=== PATIENT | male | born 2005 | race Two or more races ===

== ENCOUNTER 2024-11-19 22:42 | Inpatient (IN) | payer MEDICAID, SELFPAY ==
[2024-11-19 22:45] VITALS: PULSE 170; O2SAT 96; BMI 36.6
[2024-11-19 22:53] VITALS: BP 159/85; PULSE 153; RESP 19; TEMP 38.3; O2SAT 95
[2024-11-19] MEDS: SODIUM CHLORIDE 0.9% 1000 ML 1,000 ML 999 ML IV (23:02)
--- NOTE | 2024-11-19 23:07 | EDNOTE_ITS ---
ED Arrhythmia Palp. RME/HPI General Chief Complaint: Arrhythmia/Palpitations Stated Complaint: CHEST PAIN Time Seen by Provider: 11/19/24 22:55 Arrival date/time: 11/19/24 22:42 RME / HPI RME / HPI narrative: DR. GRIFFITHS MAIN ED EVALUATION: 19 y/o male with Hx of HTN presents to ED BIBA from home c/o 12/30 chest pain and palpitations s/p ingesting half a THC 100 mg beverage x just NANNY/HOUSEHOLD MANAGER. Patient states this is his first time using THC. Denies any other drug use. Denies heavy alcohol consumption. Per EMS, patient had heart rate in the 170's in SVT. Patient's was put on O2 15L, Versed 6 mg, and given 3 shocks (100 j, 200 j, and 360 j) without conversion, en route. No other concerns or complaintss expressed at this time. Related Data Home Medications ?Medication ?Instructions ?Recorded ?Confirmed No Known Home Medications 10/04/2109/21 Allergies Allergy/AdvReac Type Severity Reaction Status Date / Time NKA* Allergy Uncoded 10/16/23 15:37 Review of Systems Review of Systems Systems Reviewed: All systems reviewed, normal except as documented Past Medical History Past Medical History CARDIAC: Positive Hypertension ED Exam Narrative Physical exam: Generally patient is mildly somnolent but responsive heart tachycardic rate regular rhythm, lungs clear to auscultation bilaterally abdomen is soft nondistended nontender neurologic exam [place] Coma Scale is 15 without focal motor deficits skin is cool pale and dry extremities show no edema Course Quality Measures none Orders Category Date Time Status EKG (ED ONLY) *Do not use* NOW Care 11/19/24 22:56 Active EKG (ED Only) Stat Exams 11/19/24 22:56 Ordered Alcohol, Blood Medical Stat Lab 11/19/24 22:56 Ordered BNP [B-Type Natriuretic Peptide] Stat Lab 11/19/24 22:56 Ordered CBC Stat Lab 11/19/24 22:56 Ordered CMP [Comprehensive Metabolic Panel] Stat Lab 11/19/24 22:56 Ordered Drug Screen,Urine Stat Lab 11/19/24 22:56 Ordered Troponin I Stat Lab 11/19/24 22:56 Ordered Sodium Chloride 0.9% 1000 ml [Ns] 1,000 ml Med 11/19/24 22:56 Active IV 999 mls/hr Vital Signs Vital signs: Vital Signs Temperature 100.9 F H 11/19/24 22:53 Pulse Rate 153 H 11/19/24 22:53 Respiratory Rate 19 11/19/24 22:53 Blood Pressure 159/85 H 11/19/24 22:53 Pulse Oximetry (%) 95 11/19/24 22:53 Oxygen Delivery Method Room Air 11/19/24 22:53 Arrhythmia/Palpitations MDM Narrative MDM Narrative:: Scribe Attestation: IAlicia, am scribing for and in the presence of Dr. Griffiths. Provider Notation: Although this document has been carefully reviewed, there may still be some phonetic and other typographical errors. These errors are purely grammatical due to imperfections in the software program and should not be construed in any way to compromise the substance of the patient's medical care during this visit. Differential diagnosis: Drug ingestion, alcohol ingestion, electrolyte abnormality Patient was cardioverted x 3 after being given Versed 6 mg IV by paramedics. Heart rate only decreased to approximately 150. Patient arrived with an EKG done here in the emergency room showing sinus tachycardia at 153 without ischemic change. Urinary tox screen is ordered and the patient is yet to give a urine sample for the tox screen. Alcohol level is not elevated. Potassium is low at 2.6. Magnesium level is pending. Patient received potassium chloride 60 mill equivalents p.o. as well as potassium chloride 10 mill equivalents IV every hour x 4. Patient was hydrated with 1 L of IV normal saline. After approximately 2 hours here in the emergency room heart rate is down to 140 and is a sinus tachycardia. I discussed this case with the hospitalist and the patient will require admission to the hospital for further treatment and evaluation for his drug ingestion tachycardia and severe hypokalemia. Patient data External records reviewed:: [facility] previous records (No prior ED records available for review.) and EMS form Clinical information provided by:: patient and EMS Social determinants that could affect healthcare access:: substance use (THC) Patient has the following chronic illnesses:: HTN How is presenting disease/condition affected by chronic disease/condition?: exacerbated by Evaluation data The following diagnostics were reviewed and interpreted by me:: lab results and EKG tracing(s) Lab and/or radiology exams considered but not ordered:: None Interpretation Summary: See MDM above. Medications / Prescriptions Medications or Prescriptions considered but not ordered:: None Medication administrations:: Medication Administration History Sodium Chloride (Ns) 1,000 mls @ 999 mls/hr IV .Q1H1M ONE Stop: 11/19/24 23:56 Last Admin: 11/19/24 23:02 Dose: 999 mls/hr Documented By: RC Consultations Consultation(s) initiated? (list below): Yes Consultation #1 (Physician, Specialty, Details): Hospitalist made aware of the patient?s HPI, PMHx, lab and/or radiology results. Treatment plan was discussed. Will admit for further evaluation and management. Accepts patient for admission. Time: 00:32 Diagnosis Differential diagnosis arrhythmia/palpitations: palpitations, anxiety, sinus tachycardia, artial fibrillation, artial flutter, ventricular premature beats, supraventricular tachycardia, ventricular tachycardia and WPW Most likely diagnosis given after review of the tests above:: none Admission Indicated Admission indicated?: indicated Explain why admission is indicated or not indicated:: Hypokalemia Admission Request Was there a request for admission?: Yes Admission Attestation Admission request attestation: Discussed case with [] from Hospitalist service regarding admission. Discussed patients ED course, exam findings, labs, and radiology results. The Hospitalist [agrees,declines] to accept the patient for admission. Disposition Plan Disposition Plan: Admit Critical Care Time Critical Care Time Critical Care Time: Yes Total Critical Care Time (min.): 35 Attestation: Excluding other billable procedures Discharge Plan Plan Patient Disposition: Admit Acute Care w/in Hospital Prescriptions/Referrals Prescriptions/Med Rec: No Action No Known Home Medications Referrals: No Primary/Family,Physician [Primary Care Provider] - In 1 week Problem List Clinical Impression: Drug ingestion, Sinus tachycardia, Hypokalemia Patient/Caregiver Discharge Instructions Print Language: Belarusian Stand Alone Forms: [employer] Award Info., Patient Portal Info Letter
[2024-11-19 23:20] LABS: Basophils # (Auto) 0.1 Thou/mm3 (0.0-0.2); Basophils % (Auto) 1 % (0-2.5); Eosinophils # (Auto) 0.4 Thou/mm3 (0.0-0.5); Eosinophils % (Auto) 3 % (0-10); Hematocrit 39.5 % (41.0-53.0); Hemoglobin 13.6 g/dL (13.5-16.0); Immature Granulocytes Auto 0.07 Thou/mm3 (0.00-0.00); Lymphocytes # (Auto) 7.1 Thou/mm3 (1.0-4.8); Lymphocytes % (Auto) 46 % (10-50); Mean Corpuscular HGB Conc 34.4 g/dl (31.0-37.0); Mean Corpuscular Hemoglobin 29.4 pg (25.0-35.0); Mean Corpuscular Volume 85 fL (80-100); Monocytes # (Auto) 1.4 Thou/mm3 (0.0-0.8); Monocytes % (Auto) 9 % (0-12); Neutrophils # (Auto) 6.5 Thou/mm3 (1.8-7.7); Neutrophils % (Auto) 42 % (37-80); Nucleated Red Blood Cell # 0.00 Thou/mm3 (0.00-0.00); Nucleated Red Blood Cell % 0 /100 WBC (0); Platelet Count 292 Thou/mm3 (140-440); RDW Standard Deviation 38.0 fL (35.1-43.9); Red Blood Count 4.63 Miln/mm3 (4.50-5.90); White Blood Count 15.5 Thou/mm3 (4.5-11.0)
[2024-11-19 23:27] LABS: B-Type Natriuretic Peptide < 20 pg/mL (0-100)
[2024-11-19 23:33] LABS: Alanine Aminotransferase 55 U/L (10-49); Albumin, Serum 3.7 gm/dL (3.5-5.0); Albumin/Globulin Ratio 1.9 (1.2-2.2); Alcohol, Blood Medical < 3.0 mg/dL (0-10.0); Alkaline Phosphatase 81 U/L (46-116); Anion Gap 14 (7-16); Aspartate Amino Transferase 30 U/L (0-34); BUN/Creatinine Ratio 9 Ratio (12-20); Bilirubin,Total 0.2 mg/dL (0.3-1.2); Blood Urea Nitrogen 9 mg/dL (9-23); Calcium 7.8 mg/dL (8.3-10.6); Calcium (Corrected) 8.0 mg/dL (8.5-10.1); Carbon Dioxide 19.1 mMol/L (20.0-31.0); Chloride 113 mMol/L (98-107); Creatinine (Component) 1.0 mg/dL (0.6-1.3); Estimated Creatinine Clearance 150.1 mL/min (>60); Globulin 2.0 gm/dL (2.3-3.5); Glucose 132 mg/dL (74-106); Osmolality,Calculated 291 (275-295); Sodium 146 mMol/L (136-145); Total Protein 5.7 gm/dL (5.7-8.2); Troponin I < 0.002 ng/mL (0.0-0.045); eGFR > 60 See Note
[2024-11-19 23:36] LABS: Potassium 2.6 mMol/L (3.4-5.1)
[2024-11-20] VITALS (7 sets, daily range): BP systolic 125–153; BP diastolic 66–92; PULSE 70–140; RESP 15–20; TEMP 36.4–37.3; O2SAT 96–98; BMI 38.0
[2024-11-20 00:41] LABS: Magnesium 1.5 mg/dL (1.6-2.6)
[2024-11-20] MEDS: POTASSIUM CHL 10 mEq IVPB 10 MEQ/100 ML BAG 100 MEQ IV ×4 (00:42→03:51)
[2024-11-20 00:47] LABS: Path Review Blood Smear Sent to Pathologist
--- NOTE | 2024-11-20 01:27 | PD.RESHP ---
Documentation for date of: 11/20/24 HPI History of Present Illness Chief complaint: Chest pain, dizziness History of present illness: 19 y/o M without significant PMHx presents with chief complaint of 10/10 chest pain and dizziness. Symptoms began shortly after consuming half a can of High-Tea which contains 100 mg THC. Pain 10/10, substernal, nonpleuritic, nonreproducible. Patient describes dizziness as feeling lightheaded, like he was about to faint, room spinning. EMS was called, who found patient to have SVT with heart rate as high as 170s. Patient was given Versed and cardioverted 3 times in the field without success. Patient reports in the past having had heart rate in 130s on visits to PCP, has never received treatment. Family history of unspecified heart disease in mother. Patient denies fevers, chills, nausea, vomiting, shortness of breath, abdominal pain. ED COURSE: Labs significant for: WBC 15.5, potassium 2.6, magnesium 1.5, corrected calcium 8.0, troponin negative. Imaging significant for: EKG showed focal atrial tachycardia. Patient received 1 L bolus normal saline, 60 mEq p.o. potassium, 40 mEq IV potassium in ED. PMH: None PSH: None SH: Patient denies tobacco or vape use. Patient reports having tried THC once in the past. Patient denies any other illicit drug use. Patient reports rare alcohol use. FH: Unspecified heart disease in mother Allergies:?None Medications: None Review of Systems Review of Systems Systems Reviewed: All systems reviewed, normal except as documented Past Medical History Past Medical History Comments PMH COMMENT: PMH: None PSH: None SH: Patient denies tobacco or vape use. Patient reports having tried THC once in the past. Patient denies any other illicit drug use. Patient reports rare alcohol use. FH: Unspecified heart disease in mother Allergies:?None Medications: None Exam Vital Signs Temp Pulse Resp BP Pulse Ox O2 Del Method 98.7 F 140 H 18 148/92 H 98 Room Air 11/20/24 00:34 11/20/24 00:34 11/20/24 00:34 11/20/24 00:34 11/20/24 00:34 11/20/24 00:34 Narrative Exam PE: Gen: Well-developed and well-nourished. HEENT: NCAT, PERRLA, EOMI, MMM, anicteric conjunctivae. CVS: normal S1 and S2. No M/R/G. Tachycardic. Peripheral pulses intact. Resp: CTA B/L. No rhonchi, rales, crackles or wheezing. Abd: soft, non-tender, non-distended. BS+ in all 4 quadrants. MSK: Good ROM in BUE & BLE. No edema or rash. Acanthosis nigricans neck, axilla. Neuro: CN II-XII grossly intact. Strength 5/5 in BUE & BLE. Alert and oriented x3. Psych: appropriate mood and affect. Results: Labs 11/19/24 23:00 11/19/24 23:00 Labs: Short CBC 11/19/24 Range/Units 23:00 WBC 15.5 H (4.5-11.0) Thou/mm3 Hgb 13.6 (13.5-16.0) g/dL Hct 39.5 L (41.0-53.0) % Plt Count 292 (140-440) Thou/mm3 BMP 11/19/24 23:00 Sodium 146 H Potassium 2.6 L* Chloride 113 H Carbon Dioxide 19.1 L BUN 9 Creatinine 1.0 Glucose 132 H Calcium 7.8 L Cardiac Enzymes 11/19/24 Range/Units 23:00 Troponin I < 0.002 (0.0-0.045) ng/mL Liver Function 11/19/24 Range/Units 23:00 Total Bilirubin 0.2 L (0.3-1.2) mg/dL AST 30 (0-34) U/L ALT 55 H (10-49) U/L Alkaline Phosphatase 81 (46-116) U/L Albumin 3.7 (3.5-5.0) gm/dL Quality Measures Quality Measures VTE prophylaxis Medications Home Medications and Allergies Home Medications ?Medication ?Instructions ?Recorded ?Confirmed ?Type No Known Home Medications 10/04/21 10/16/23 History Allergies Allergy/AdvReac Type Severity Reaction Status Date / Time NKA* Allergy Uncoded 10/16/23 15:37 Visit Medications Acetaminophen (Acetaminophen 325 Mg Tablet) 650 mg PO Q6H PRN PRN Reason: Fever >100.4 or pain Stop: 12/20/24 01:17 Docusate Sodium (Docusate Sod 100 Mg Capsule) 100 mg PO QDAY PRN; Protocol PRN Reason: CONSTIPATION Stop: 12/20/24 01:17 Enoxaparin Sodium (Enoxaparin Sod Inj 40 Mg/0.4 Ml Syringe) 40 mg SC QDAY JEAN Stop: 12/04/24 08:59 Potassium Chloride (Kcl Ivpb) 10 meq in 100 mls @ 100 mls/hr IV Q1H JEAN Stop: 11/20/24 03:42 Last Admin: 11/20/24 00:42 Dose: 100 mls/hr Magnesium Sulfate (Magnesium Sulfate Ivpb) 4 gm in 50 mls @ 12.5 mls/hr IV X1 ONE Stop: 11/20/24 05:17 Lactated Ringer's (Lactated Ringers) 1,000 mls @ 999 mls/hr IV .Q1H1M ONE Stop: 11/20/24 02:21 Ibuprofen (Ibuprofen Tab 600 Mg Tablet) 600 mg PO Q6H PRN PRN Reason: Pain Scale 1-6 Stop: 12/20/24 01:17 Sennosides (Senna Tablet) 1 tab PO QDAY PRN; Protocol PRN Reason: constipation Stop: 12/20/24 01:17 Discontinued Medications Sodium Chloride (Ns) 1,000 mls @ 999 mls/hr IV .Q1H1M ONE Stop: 11/19/24 23:56 Last Infusion: 11/20/24 00:42 Dose: Infused Potassium Chloride (Potassium Chloride 20 Meq Tabcr) 60 meq PO X1 ONE Stop: 11/19/24 23:43 Last Admin: 11/20/24 00:38 Dose: 60 meq Assessment & Plan Plan 19 y/o M without significant PMHx presents with chief complaint of 10/10 chest pain and dizziness, admitted for SVT. #SVT, hemodynamically stable Patient presented with chief complaint 10/10 chest pain after drinking half a can of high?tea containing 100 mg THC. Patient also complained of dizziness, described a sensation of room spinning, feeling as though he was going to faint. Electric cardioversion attempted 3 times in the field by EMS without success. In the field heart rate was as high as 170s. Potassium 2.6, magnesium 1.5, repleted. Troponin negative. Cardiology consulted. Patient received 1 L bolus normal saline in the ED. Heart rate decreased to 130s, patient's symptoms improved. - Telemonitoring - Cardiology consult, appreciate recommendations - Maintain potassium > 4.0 and magnesium > 2.0 - Echo ordered, follow-up - TSH, lipid panel, A1c ordered, follow-up #Leukocytosis WBC 15.5. Patient afebrile, denies any signs/symptoms of infection. Suspect reactive in setting of SVT. - Continue to monitor DVT prophylaxis: Lovenox GI prophylaxis: None Diet: Cardiac Lines: Peripheral IV Code status: Full Code Plan of care discussed with Dr. Alcantar. Alexandre Pretty MD PGY-2 Attending Provider Attestation/Addendum After examination of the patient and review of the clinical data I feel that this patient needs admission to the hospital for further treatment/evaluation. I have discussed and was present for the essential components of the history, physical examination, diagnosis, and treatment plan with the resident. I agree with the patient's care as documented by the resident and amended herein by me. Ottoniel Alcantar, DO. Although this document has been carefully reviewed, there may still be some phonetic and other typographical errors. These errors are purely grammatical due to imperfections in the software program and should not be construed in any way to compromise the substance of the patient's medical care during this visit. Patient seen and evaluated in the ED in short, 19-year-old male with significant past medical history of morbid obesity, microscopic hematuria, previously has followed with urology and a reported history of tachycardia, the patient does have a past echo on file read by Dr. Herrera however no additional details known, presented to the ED with complaints of 10 out of 10 chest pain, dizziness, lightheadedness which began shortly after consuming a can of high tea which contains THC. Upon arrival of EMS, the patient demonstrating supraventricular tachycardia with a heart rate in the 170s, the patient was given Versed and cardioverted multiple times (3) without successful conversion. In the ED, BP 148/92, heart rate was improved at time of my bedside visit to 136, the patient was on room air, not in any apparent distress, able to communicate with us without issue. Significant labs include a WBC of 15, sodium 146, potassium 2.6, chloride 113, bicarb 19, BUN 9, creatinine 1, calcium 8 and a magnesium of 1.5. Alcohol level was negative. On 06/03/2022 the patient did have an echocardiogram as stated above, read by Dr. Herrera, it demonstrated normal LV size and function with an EF of 65%, trace mitral and trace tricuspid regurgitation was noted. In the ED, the patient's potassium was repleted with 60 mill equivalents p.o. and 40 mill equivalents IV. Patient was also given 1 L of NS. Patient will be admitted to acute telemetry for a supraventricular tachycardia, possibly AVNRT, electrolyte derangements to include hypokalemia and hypomagnesia as well as dehydration. Patient also had a slight leukocytosis with a WBC of 15 which is likely reactive. We will continue repeating the patient's electrolytes, an echo has been ordered, cardiology has been consulted, and we will give an additional LR bolus. If the patient's heart rate remains elevated after electrolyte and fluid replenishment, we may try metoprolol dosing however we will hold off for now. Will continue to monitor closely.
[2024-11-20] MEDS: Magnesium Sulfate 4 GM Ivpb 4 GM/50 ML BAG IV (01:43)
[2024-11-20] MEDS: RINGERS LACTATED 1000 ML 1,000 ML 999 ML IV (02:23)
[2024-11-20 02:57] LABS: Amphetamine/Methamp Scrn,U Negative (Negative); Barbiturate Screen,Urine Negative (Negative); Benzodiazepines Screen,Urine Positive (Negative); Benzoylecgonine Screen, Ur Negative (Negative); Fentanyl Screen,Urine Negative (Negative); Opiate Screen,Urine Negative (Negative); THC Screen,Urine Positive (Negative)
[2024-11-20 03:22] LABS: Anion Gap 11 (7-16); BUN/Creatinine Ratio 9 Ratio (12-20); Blood Urea Nitrogen 9 mg/dL (9-23); Calcium 8.8 mg/dL (8.3-10.6); Carbon Dioxide 19.9 mMol/L (20.0-31.0); Chloride 111 mMol/L (98-107); Creatinine (Component) 1.0 mg/dL (0.6-1.3); Estimated Creatinine Clearance 150.1 mL/min (>60); Glucose 135 mg/dL (74-106); Osmolality,Calculated 283 (275-295); Potassium 4.4 mMol/L (3.4-5.1); Sodium 142 mMol/L (136-145); eGFR > 60 See Note
[2024-11-20 05:47] LABS: Basophils # (Auto) 0.1 Thou/mm3 (0.0-0.2); Basophils % (Auto) 0 % (0-2.5); Eosinophils # (Auto) 0.0 Thou/mm3 (0.0-0.5); Eosinophils % (Auto) 0 % (0-10); Hematocrit 42.4 % (41.0-53.0); Hemoglobin 14.4 g/dL (13.5-16.0); Immature Granulocytes Auto 0.08 Thou/mm3 (0.00-0.00); Lymphocytes # (Auto) 3.5 Thou/mm3 (1.0-4.8); Lymphocytes % (Auto) 20 % (10-50); Mean Corpuscular HGB Conc 34.0 g/dl (31.0-37.0); Mean Corpuscular Hemoglobin 29.4 pg (25.0-35.0); Mean Corpuscular Volume 87 fL (80-100); Monocytes # (Auto) 0.9 Thou/mm3 (0.0-0.8); Monocytes % (Auto) 5 % (0-12); Neutrophils # (Auto) 12.7 Thou/mm3 (1.8-7.7); Neutrophils % (Auto) 74 % (37-80); Nucleated Red Blood Cell # 0.00 Thou/mm3 (0.00-0.00); Nucleated Red Blood Cell % 0 /100 WBC (0); Platelet Count 292 Thou/mm3 (140-440); RDW Standard Deviation 38.9 fL (35.1-43.9); Red Blood Count 4.89 Miln/mm3 (4.50-5.90); White Blood Count 17.2 Thou/mm3 (4.5-11.0)
[2024-11-20 06:18] LABS: Glucose Estimated Average 111 mg/dL (80-131); Hemoglobin A1C 5.5 % Hgb (4.8-6.0)
[2024-11-20 06:46] LABS: Alanine Aminotransferase 63 U/L (10-49); Albumin, Serum 4.1 gm/dL (3.5-5.0); Albumin/Globulin Ratio 1.9 (1.2-2.2); Alkaline Phosphatase 107 U/L (46-116); Anion Gap 15 (7-16); Aspartate Amino Transferase 33 U/L (0-34); BUN/Creatinine Ratio 7 Ratio (12-20); Bilirubin,Total 0.2 mg/dL (0.3-1.2); Blood Urea Nitrogen 7 mg/dL (9-23); Calcium 9.1 mg/dL (8.3-10.6); Calcium (Corrected) 9.1 mg/dL (8.5-10.1); Carbon Dioxide 18.5 mMol/L (20.0-31.0); Cardiac Risk Estimate 3.6 RATIO (4.0-6.7); Chloride 110 mMol/L (98-107); Cholesterol 154 mg/dL (132-200); Creatinine (Component) 1.0 mg/dL (0.6-1.3); Estimated Creatinine Clearance 153.2 mL/min (>60); Globulin 2.2 gm/dL (2.3-3.5); Glucose 116 mg/dL (74-106); HDL Cholesterol 43 mg/dL (40-60); LDL Cholesterol,Calculated 84 mg/dL (0-130); Magnesium 2.4 mg/dL (1.6-2.6); Osmolality,Calculated 283 (275-295); Potassium 4.2 mMol/L (3.4-5.1); Sodium 143 mMol/L (136-145); Thyroid Stimulating Hormone 0.56 uIU/mL (0.55-4.78); Total Protein 6.3 gm/dL (5.7-8.2); Triglycerides 134 mg/dL (30-150); eGFR > 60 See Note
--- NOTE | 2024-11-20 08:54 | PC.SS ---
STRETCH MACHINE OPERATOR conducted bedside contact with the patient conduct initial assessment and to discuss discharge planning.? Patient confirmed demographic information.? Patient resides at home with parents. ?Patient does not utilize any form of DME to assist with ambulation.? Patient does not utilize home oxygen.? Patient describes the ability to complete ADL?s independently.? Patient identified father, Virgilio Nielsen ; as surrogate medical decision maker.? Patient utilizes [facility] for PCP services.? Patient does not participate with dialysis.? Patient does not possess any specialty providers.? Patient utilizes [facility] for medication services.? Plan is for the patient to return home at the time of discharge.? Family will provide transportation on behalf of the patient. ?No further discharge needs identified by the patient.? No further intervention required at this time, social service liaison will be available to address any further concerns.? Next of Kin: Virgilio De Diosnandez D/C Plan: Home
[2024-11-20 08:56] LABS: Phosphorous 3.2 mg/dL (2.4-5.1)
[2024-11-20] MEDS: ENOXAPARIN SOD INJ 40 MG/0.4 ML SYRINGE SC (09:10)
[2024-11-20 11:13] LABS: Free T4 (Free Thyroxine) 1.13 ng/dL (0.89-1.76); Troponin I < 0.020 ng/mL (0.0-0.045)
--- NOTE | 2024-11-20 11:57 | ESCONSULT_ITS ---
HPI Data of Consult Requesting Physician: Shaji Alcantar DO Primary Care Provider: Physician No Primary/Family Consult Narrative History of present illness: This is a 19 y/o M without significant PMHx presents with chief complaint of 10/10 chest pain and dizziness. pt consumed THC in the form of High-Tea pt developed chest pain and EMS saw the pt in SVT ; shocked x3 in ER pt was in sinus tachycardia HR 140 troponin negative echo - 2 years ago unremarkable cc:: cc: Shaji Alcantar DO Meds Home Medications and Allergies Home Medications ?Medication ?Instructions ?Recorded ?Confirmed ?Type No Known Home Medications 10/04/2110/23 History Allergies Allergy/AdvReac Type Severity Reaction Status Date / Time NKA* Allergy Uncoded 10/16/23 15:37 Exam Vital Signs Temp Pulse Resp BP Pulse Ox O2 Del Method 98.3 F 101 H 20 136/68 H 97 Room Air 11/20/24 08:00 11/20/24 08:00 11/20/24 08:00 11/20/24 08:00 11/20/24 08:00 11/20/24 08:00 Routine HEENT Exam Head: Present normocephalic and atraumatic Eye: Present EOMI and PERRL ENT: Present mucous membranes moist Routine Neck Exam Neck: Present supple and trachea midline Routine Respiratory Exam Respiratory: Present chest non-tender, lungs clear, normal breath sounds and no resp distress Routine Cardiovascular Exam Cardiovascular: Present RRR Routine Abdominal Exam Abdominal: Present soft and normoactive bowel sounds Routine Extremities Exam Extremities: Present full ROM Routine Skin Exam Skin: Present intact, dry and warm Routine Neurological Exam Neurological: Present alert, oriented X3 and CN II-XII intact Routine Psychiatric Exam Psychiatric: Present normal affect and normal thought process Results Labs 11/20/24 04:40 11/20/24 04:40 Labs: Short CBC 11/19/24 11/20/24 Range/Units 23:00 04:40 WBC 15.5 H 17.2 H (4.5-11.0) Thou/mm3 Hgb 13.6 14.4 (13.5-16.0) g/dL Hct 39.5 L 42.4 (41.0-53.0) % Plt Count 292 292 (140-440) Thou/mm3 BMP 11/19/24 11/20/24 11/20/24 23:00 02:50 04:40 Sodium 146 H 142 143 Potassium 2.6 L* 4.4 D 4.2 Chloride 113 H 111 H 110 H Carbon Dioxide 19.1 L 19.9 L 18.5 L BUN 9 9 7 L Creatinine 1.0 1.0 1.0 Glucose 132 H 135 H 116 H Calcium 7.8 L 8.8 9.1 Cardiac Enzymes 11/19/24 11/20/24 Range/Units 23:00 04:40 Troponin I < 0.002 < 0.020 (0.0-0.045) ng/mL Liver Function 11/19/24 11/20/24 Range/Units 23:00 04:40 Total Bilirubin 0.2 L 0.2 L (0.3-1.2) mg/dL AST 30 33 (0-34) U/L ALT 55 H 63 H (10-49) U/L Alkaline Phosphatase 81 107 D (46-116) U/L Albumin 3.7 4.1 (3.5-5.0) gm/dL Assessment and Plan Assessment and plan (1) Hypokalemia: Status: Acute (2) Sinus tachycardia: Status: Acute Additional Assessment & Plan Additional Plan: EKG with the reported SVT - no available Rpt EKG pending troponin negative echo - 2 years ago unremarkable stable cardiac status
--- NOTE | 2024-11-20 11:59 | EKG_ITS ---
[facility] Test Date: 2024-11-20 Pat Name: LA HUFFMAN [facility] Crime Victim Specialist: DUNIA : 2005 Requested By: Dorota Burgos Order Number: [id number] Reading MD: Dorota Burgos Measurements Intervals [place] Rate: 89 P: 41 CA: 168 QRS: 215 QRSD: 102 T: 32 QT: 338 QTc: 412 Interpretive Statements SINUS RHYTHM INDETERMINATE AXIS ST ELEVATION CONSISTENT WITH INJURY, PERICARDITIS, OR EARLY REPOLARIZATION No previous ECG available for comparison /[id number]/[email or web address]/[id number]
--- NOTE | 2024-11-20 14:07 | ESPR_ITS ---
<Statement entered by Jeremie Munoz MD - 11/20/24 16:34> Patient was seen and examined at bedside. Patient had severe hypokalemia after he drink excessive amount of high tea that contain THC. He developed SVT controlled with IV hydration at the ED. Potassium was repleted. Patient at this time stable pending cardiac recommendations. - Patient's plan and care discussed with my attending, _ and senior resident _ Jeremie Mnuoz MD Internal Medicine PGY-3 Documentation for date of: 11/20/24 Subjective Subjective Interval history: No acute events overnight. Patient seen and examined at bedside. Vitals and labs reviewed. Patient endorses some anxiety and tachycardia that comes and goes. Patient denies fever, chest pain, shortness of breath, abodminal pain. Patient encouraged to not drink or ingest any marijuana related items or any other drugs. Exam Vital Signs Temp Pulse Resp BP Pulse Ox O2 Del Method 97.7 F 86 20 153/88 H 97 Room Air 11/20/24 12:00 11/20/24 12:00 11/20/24 12:00 11/20/24 12:00 11/20/24 12:11/20/24 12:00 Narrative Exam General: No acute distress; A&Ox3 Skin: Warm, dry, intact, no obvious rash. HENT: NCAT, EOMI, not icteric. External ears normal. No rhinorrhea. Moist mucous membranes Cardiovascular: Regular rate and rhythm, no murmur, +S1/S2. Respiratory: Lungs CTAB GI: Soft, nontender, non-distended. No guarding or rebound tenderness. Extremities: no edema, no cyanosis, no clubbing. Extremity pulses present Neuro: No focal deficits observed. Conversant, moving all extremities. No overt cerebellar signs/incoordination. Psychiatric: Cooperative, appropriate affect. Objective Labs 11/21/24 04:34 11/21/24 04:34 Labs: Laboratory Results - last 24 hr 11/19/24 11/19/24 11/20/24 23:00 23:50 02:17 WBC 15.5 H RBC 4.63 Hgb 13.6 Hct 39.5 L MCV 85 MCH 29.4 MCHC 34.4 RDW Std Deviation 38.0 Plt Count 292 Neut % (Auto) 42 Lymph % (Auto) 46 [place] % (Auto) 9 Eos % (Auto) 3 Baso % (Auto) 1 Neut # (Auto) 6.5 Lymph # (Auto) 7.1 H [place] # (Auto) 1.4 H Eos # (Auto) 0.4 Baso # (Auto) 0.1 Immature Gran # (Auto) 0.07 H Absolute Nucleated RBC 0.00 Immature Gran % 1 H Nucleated RBC % 0 Smear Path Review Sent to Pathologist Sodium 146 H Potassium 2.6 L* Chloride 113 H Carbon Dioxide 19.1 L Anion Gap 14 BUN 9 Creatinine 1.0 Estim Creat Clear Calc 150.1 eGFR > 60 BUN/Creatinine Ratio 9 L Glucose [address] Glu mg/dL Hemoglobin A1c Calculated Osmolality 291 Calcium 7.8 L Corrected Calcium 8.0 L Phosphorus Magnesium 1.5 L Total Bilirubin 0.2 L AST 30 ALT 55 H Alkaline Phosphatase 81 Troponin I < 0.002 B-Natriuretic Peptide < 20 Total Protein 5.7 Albumin 3.7 Globulin 2.0 L Albumin/Globulin Ratio 1.9 Triglycerides Cholesterol LDL Cholesterol, Calc HDL Cholesterol Cholesterol/HDL Ratio TSH Free T4 Urine Opiates Screen Negative Urine Fentanyl Screen Negative Ur Barbiturates Screen Negative U Amphetamin/Meth Scrn Negative U Benzodiazepines Scrn Positive A U Cocaine Metab Screen Negative U Marijuana (THC) Screen Positive A Ethyl Alcohol < 3.0 11/20/24 11/20/24 02:50 04:40 WBC 17.2 H RBC 4.89 Hgb 14.4 Hct 42.4 MCV 87 MCH 29.4 MCHC 34.0 RDW Std Deviation 38.9 Plt Count 292 Neut % (Auto) 74 Lymph % (Auto) 20 [place] % (Auto) 5 Eos % (Auto) 0 Baso % (Auto) 0 Neut # (Auto) 12.7 H Lymph # (Auto) 3.5 [place] # (Auto) 0.9 H Eos # (Auto) 0.0 Baso # (Auto) 0.1 Immature Gran # (Auto) 0.08 H Absolute Nucleated RBC 0.00 Immature Gran % 1 H Nucleated RBC % 0 Smear Path Review Sodium 142 143 Potassium 4.4 D 4.2 Chloride 111 H 110 H Carbon Dioxide 19.9 L 18.5 L Anion Gap 11 15 BUN 9 7 L Creatinine 1.0 1.0 Estim Creat Clear Calc 150.1 153.2 eGFR > 60 > 60 BUN/Creatinine Ratio 9 L 7 L Glucose [address] Glu mg/dL 111 Hemoglobin A1c 5.5 Calculated Osmolality 283 283 Calcium 8.8 9.1 Corrected Calcium 9.1 Phosphorus 3.2 Magnesium 2.4 Total Bilirubin 0.2 L AST 33 ALT 63 H Alkaline Phosphatase 107 D Troponin I < 0.020 B-Natriuretic Peptide Total Protein 6.3 Albumin 4.1 Globulin 2.2 L Albumin/Globulin Ratio 1.9 Triglycerides 134 Cholesterol 154 LDL Cholesterol, Calc 84 HDL Cholesterol 43 Cholesterol/HDL Ratio 3.6 L TSH 0.56 Free T4 1.13 Urine Opiates Screen Urine Fentanyl Screen Ur Barbiturates Screen U Amphetamin/Meth Scrn U Benzodiazepines Scrn U Cocaine Metab Screen U Marijuana (THC) Screen Ethyl Alcohol Quality Measures Quality Measures VTE prophylaxis Assessment & Plan Assessment Current Active Medications: Generic Name Dose Route Start Last Admin Trade Name Freq PRN Reason Stop Dose Admin Acetaminophen 650 mg 11/20/24 01:18 Acetaminophen 325 Mg Tablet PO 12/20/24 01:17 Q6H PRN Fever >100.4 or pain 1-3 Docusate Sodium 100 mg 11/20/24 01:18 Docusate Sod 100 Mg Capsule PO 12/20/24 01:17 QDAY PRN CONSTIPATION Protocol Enoxaparin Sodium 40 mg 11/20/24 09:00 11/20/24 09:10 Enoxaparin Sod Inj 40 Mg/0.4 Ml Syringe SC 12/04/24 08:59 40 mg QDAY JEAN Administration Ibuprofen 600 mg 11/20/24 07:11 Ibuprofen Tab 600 Mg Tablet PO 12/20/24 01:17 Q6H PRN PAIN SCALE 4-6 (Moderate Sennosides 1 tab 11/20/24 01:18 Senna Tablet PO 12/20/24 01:17 QDAY PRN constipation Protocol Plan 19 y/o M without significant PMHx presents with chief complaint of 10/10 chest pain and dizziness, admitted for SVT. #SVT, hemodynamically stable Patient presented with chief complaint 10/10 chest pain after drinking half a can of high?tea containing 100 mg THC. Patient also complained of dizziness, described a sensation of room spinning, feeling as though he was going to faint. Electric cardioversion attempted 3 times in the field by EMS without success. In the field heart rate was as high as 170s. Potassium 2.6, magnesium 1.5, repleted. Troponin negative. Cardiology consulted. Patient received 1 L bolus normal saline in the ED. Heart rate decreased to 130s, patient's symptoms improved. EKG showed sinus rhythm - Telemonitoring - Cardiology consult, appreciate recommendations - Maintain potassium > 4.0 and magnesium > 2.0 - Echo ordered, follow-up #Leukocytosis WBC 15.5 -> 17.2 Patient afebrile, denies any signs/symptoms of infection. Suspect reactive in setting of SVT vs less likely infection. - Continue to monitor DVT prophylaxis: Lovenox GI prophylaxis: None Diet: Cardiac Lines: Peripheral IV Code status: Full Code Patient plan of care was discussed with the attending physician, Dr. Kidd & senior resident Dr. Alexander Ohara MD PGY-1 Attending Provider Attestation/Addendum I reviewed labs, imaging, EKG, home medications and prior available records. Face to face evaluation was performed by me. I have personally examined the patient and discussed assessment and plan with the IM team. I reviewed the resident note and agree with the plan with exceptions as below. SVT Marijuana use Leukocytosis Hypokalemia Transaminitis Heart rate improved Follow-up echocardiogram Consulted cardiology Trend WBC Trend LFTs Replete potassium as needed and monitor potassium level Counseled the patient regarding the importance of avoiding marijuana and other illicit drugs
[2024-11-21] VITALS: BP 139/86; PULSE 80; PULSE 81; RESP 17; TEMP 36.7; O2SAT 97
[2024-11-21 04:00] VITALS: BP 134/59; PULSE 54; PULSE 60; RESP 18; TEMP 36.2; O2SAT 98
[2024-11-21 04:50] VITALS: BMI 38.0
[2024-11-21 05:48] LABS: Basophils # (Auto) 0.1 Thou/mm3 (0.0-0.2); Basophils % (Auto) 1 % (0-2.5); Eosinophils # (Auto) 0.3 Thou/mm3 (0.0-0.5); Eosinophils % (Auto) 3 % (0-10); Hematocrit 44.0 % (41.0-53.0); Hemoglobin 14.8 g/dL (13.5-16.0); Immature Granulocytes Auto 0.05 Thou/mm3 (0.00-0.00); Lymphocytes # (Auto) 5.0 Thou/mm3 (1.0-4.8); Lymphocytes % (Auto) 42 % (10-50); Mean Corpuscular HGB Conc 33.6 g/dl (31.0-37.0); Mean Corpuscular Hemoglobin 29.5 pg (25.0-35.0); Mean Corpuscular Volume 88 fL (80-100); Monocytes # (Auto) 1.1 Thou/mm3 (0.0-0.8); Monocytes % (Auto) 9 % (0-12); Neutrophils # (Auto) 5.5 Thou/mm3 (1.8-7.7); Neutrophils % (Auto) 46 % (37-80); Nucleated Red Blood Cell # 0.00 Thou/mm3 (0.00-0.00); Nucleated Red Blood Cell % 0 /100 WBC (0); Platelet Count 270 Thou/mm3 (140-440); RDW Standard Deviation 39.2 fL (35.1-43.9); Red Blood Count 5.01 Miln/mm3 (4.50-5.90); White Blood Count 12.1 Thou/mm3 (4.5-11.0)
[2024-11-21 06:02] LABS: INR 1.1 (0.9-1.3); Partial Thromboplastin Time 27.6 Seconds (22.0-36.0); Prothrombin Time 11.6 Seconds (9.0-12.2)
[2024-11-21 06:27] LABS: Alanine Aminotransferase 53 U/L (10-49); Albumin, Serum 4.3 gm/dL (3.5-5.0); Albumin/Globulin Ratio 2.0 (1.2-2.2); Alkaline Phosphatase 70 U/L (46-116); Anion Gap 11 (7-16); Aspartate Amino Transferase 23 U/L (0-34); BUN/Creatinine Ratio 9 Ratio (12-20); Bilirubin,Total 0.5 mg/dL (0.3-1.2); Blood Urea Nitrogen 8 mg/dL (9-23); Calcium 9.6 mg/dL (8.3-10.6); Calcium (Corrected) 9.6 mg/dL (8.5-10.1); Carbon Dioxide 24.9 mMol/L (20.0-31.0); Chloride 107 mMol/L (98-107); Creatinine (Component) 0.9 mg/dL (0.6-1.3); Estimated Creatinine Clearance 170.3 mL/min (>60); Globulin 2.2 gm/dL (2.3-3.5); Glucose 86 mg/dL (74-106); Magnesium 2.0 mg/dL (1.6-2.6); Osmolality,Calculated 282 (275-295); Phosphorous 4.4 mg/dL (2.4-5.1); Potassium 4.0 mMol/L (3.4-5.1); Sodium 143 mMol/L (136-145); Total Protein 6.5 gm/dL (5.7-8.2); eGFR > 60 See Note
[2024-11-21 07:59] VITALS: BP 142/84; PULSE 76; RESP 18; TEMP 36.2; O2SAT 99
[2024-11-21 08:00] VITALS: PULSE 65
[2024-11-21] MEDS: ENOXAPARIN SOD INJ 40 MG/0.4 ML SYRINGE SC (08:10)
[2024-11-21 12:00] VITALS: BP 135/72; PULSE 72; RESP 16; TEMP 36.3; O2SAT 99
--- NOTE | 2024-11-21 13:12 | ESDS_ITS ---
<Statement entered by Jordi Xavier MD - 11/21/24 14:20> Mr Nielsen is a 19 year old male without any PMH who was admitted for acute arrythmia due to heavy ingestion of THC tea. He was cardioverted x3 by EMT. Cardiology was consulted in patient, he spontaneously converted to sinus rhythm in 48 hours and safely discharged home. He was given instructions to follow up with Cardiology outpatient for echo and further cardiac monitoring. Patient examined and case discussed with the team including attending physician. Note reviewed, I agree with the discharge plan as documented. Please refer to the note below for further details. - Jordi Xavier MD, PGY3 Disclaimer: The document may contain phonetic/typographic errors due to voice recognition software. These errors are purely due to imperfections in the software program. Planned Discharge Date 11/21/24 DS: Providers Provider Date of admission: 11/20/24 01:18 Primary care physician: Physician No Primary/Family Admitting Provider: Shaji Alcantar DO Attending Provider on Admission: Shaji Alcantar DO Consults: 11/20/24 01:22 Consult to Cardiology Routine Comment: New onset SVT Consulting Provider: Dorota Burgos Attending Provider on DC: Smith Kidd MD Discharging Provider: Thom Clifford DO DS: Diagnosis Discharge Diagnosis (1) Mild tetrahydrocannabinol (THC) abuse: Status: Acute Problem List Completed Was Problem List Reviewed/Reconciled?: Yes Hospital Course Hospital Course Hospital course: Hospital Course: Patient is a 19-year-old male with no significant past medical history who presented with 10 of 10 chest pain and dizziness shortly after consuming a half can of tea that contained 100 mg of THC. He had substernal nonpleuritic nonreproducible chest pain. In the field EMS found him in supraventricular tachycardia and cardioverted him 3 times with no success. He got a liter bolus of fluid in the emergency department as well as potassium. EKG showed diffuse ST elevation, tropes were negative. The patient was admitted for monitoring due to dizziness and SVT. Cardiology was consulted while inpatient, recommend follow up outpatient for echo and complete abstinence from THC products. Patient has returned to baseline, was noted to be in sinus rhythm after 48 hours and mildly hypertensive with a blood pressure 135/72, and downtrending leukocytosis WBC 17- > 12.1. Problem List: #Hemodynamically stable tachycardia #Leukocytosis - resolving Discharge Instructions: - Follow-up outpatient cardiology for echocardiogram - Consider follow-up CBC in 1 week due to leukocytosis - Avoid THC agents - Return to the emergency department if you experience chest pain, shortness of breath, trouble breathing, fever or chills, weakness, numbness, confusion, or persistent vomiting Continue taking all other home medications as prescribed - Follow-up with PCP within 1-2 weeks of discharge - Follow-up with cardiology within 1-2 weeks of discharge and obtain echo - Recommend to abstain from THC-containing products - If you do not have a PCP, you can follow-up at the [facility] (you can call [phone] to make an appointment) - Return to ED if symptoms worsen or recur The patient was seen and discussed with my attending physician Dr. Bernabe Clifford DO PGY-1 Status at Discharge Cognitive/behavioral status at discharge: Stable and returned to baseline. Time Spent with Patient Time attestation: Total time spent providing and/or coordinating discharge services: More than 50%. Time spent: Greater than 30 minutes Exam Vital Signs Temp Pulse Resp BP Pulse Ox O2 Del Method 97.3 F 72 16 135/72 H 99 Room Air 11/21/24 12:11/21/24 12:11/21/24 12:11/21/24 12:11/21/24 12:11/21/24 07:59 Narrative Exam General: Awake and in no acute distress. Conversational and non-toxic appearing. Neurologic: GCS 15. Alert and oriented x3, no gross neurological deficit, and patient able to move all 4 extremities. HEENT: Normocephalic, atraumatic, mucous membranes moist. Pupils reactive to light. Heart: Regular rate and rhythm, normal S1 and S2, no murmurs. Lungs: Clear to auscultation bilaterally with no wheezing or crackles. Abdomen: Soft, nondistended, nontender, positive bowel sounds. No guarding or rebound tenderness. Extremities: No edema. 2+ radial and dorsalis pedis pulses bilaterally. Skin: Warm. Dry. No rash or ecchymoses. Discharge Plan Plan Patient Disposition: HOME (Self Care) Care Plan Goals: ? Continue taking all other home medications as prescribed ? Follow-up with PCP within 1-2 weeks of discharge ? Follow-up with cardiology within 1-2 weeks of discharge and obtain echo ? Recommend to abstain from THC-containing products ? If you do not have a PCP, you can follow-up at the [facility] (you can call [phone] to make an appointment) ? Return to ED if symptoms worsen or recur Prescriptions/Referrals Prescriptions/Med Rec: No Action No Known Home Medications Referrals: No Primary/Family,Physician [Primary Care Provider] - Patient/Caregiver Discharge Instructions Education Materials: Understanding Tachycardia, ED About Arrhythmias Print Language: Sudanese Stand Alone Forms: [employer]., Patient Portal Info Letter Discharge Order Discharge Orders: Discharge (Routine); Ordered 11/21/24 Ordered By: Thom Clifford Quality Discharge Quality Measures VTE prophylaxis MD Attestestation Attestation I reviewed labs, imaging, EKG, home medications and prior available records. Face to face evaluation was performed by me. I have personally examined the patient and discussed assessment and plan with the IM team. I reviewed the resident note and agree with the plan with exceptions as below. SVT, resolved Marijuana use Leukocytosis, improved Hypokalemia, improved Transaminitis, improved Heart rate improved No beta-blockers upon discharge Follow-up echocardiogram as outpatient Outpatient follow-up with cardiology Counseled the patient regarding the importance of avoiding marijuana and other illicit drugs Time spent is 35 minutes. More than 50% of the time was spent on patient education and coordination of care.
== END 2024-11-21 12:30 | disposition home or self-care (01) | DRG 201 ==
LOC: SERX 11-20 00:39 → SERHOLD 11-20 02:20 → S2NX 11-20 04:00
PROVIDERS: Student in an Organized Health Care Education/Training Program; Admitting Provider Student in an Organized Health Care Education/Training Program; Emergency Provider Emergency Medicine; Visit Provider Student in an Organized Health Care Education/Training Program
DX: I47.10 Supraventricular tachycardia, unspecified (principal); D72.829 Elevated white blood cell count, unspecified; E87.6 Hypokalemia; F12.10 Cannabis abuse, uncomplicated
CPT/HCPCS: 36415; 80048; 80053; 80061; 80307; 80320; 83036; 83735; 83880; 84100; 84439; 84443; 84484; 85025; 85610; 85730; 87040; 93005; 96361; 96365; 99284; J1200; J1650; J3475; J3480; J7030; J7120; A9270; G0480